=== PATIENT | female | born 1965 | race Caucasian/White ===

== ENCOUNTER 2017-11-24 08:25 | Outpatient (CLI) | payer OTHER ==
[~2017-11-24 08:25] MED LIST: AFRIN15 ML NASAL; ARIMIDEX; AYR SALINE NA14.1 GM NASAL; CARDURA1 MG; CARDURA1 MG PO; COUMADIN3 MG PO; COUMADIN4 MG PO; INTEGRA CAPSUL1 EACH; INTEGRA CAPSUL1 EACH PO; INTESTINEX1 CA1 PO; INTESTINEX680 MG PO; IRON1 TA1; MICARDIS HCT 81 EACH; MICARDIS HCT 81 EACH PO; NEURIN-SL; NORVASC 10 MG TAB PO; NORVASC10 MG; NORVASC10 MG PO; Neurin-Sl Tablet Sl SL; OXYCODON-ACETA1 EACH; PROTONIX40 MG PO; VANCOCIN ORAL SUSP. PO; [UNRECOGNIZED DRUG - OTHER]
== END 2017-11-24 08:40 | disposition home or self-care (01) ==
LOC: LAB 08:25
DX: Z80.3 Family history of malignant neoplasm of breast (principal); Z80.42 Family history of malignant neoplasm of prostate; C50.412 Malignant neoplasm of upper-outer quadrant of left female breast; C50.411 Malignant neoplasm of upper-outer quadrant of right female breast; C18.0 Malignant neoplasm of cecum; C20 Malignant neoplasm of rectum; D50.0 Iron deficiency anemia secondary to blood loss (chronic); I10 Essential (primary) hypertension; D68.9 Coagulation defect, unspecified; D68.62 Lupus anticoagulant syndrome; D68.61 Antiphospholipid syndrome; D68.59 Other primary thrombophilia; D51.1 Vitamin B12 deficiency anemia due to selective vitamin B12 malabsorption with proteinuria; D51.3 Other dietary vitamin B12 deficiency anemia; D63.1 Anemia in chronic kidney disease; N18.3 Chronic kidney disease, stage 3 (moderate); E53.8 Deficiency of other specified B group vitamins; D52.0 Dietary folate deficiency anemia; Z86.73 Personal history of transient ischemic attack (TIA), and cerebral infarction without residual deficits; I63.9 Cerebral infarction, unspecified; I69.352 Hemiplegia and hemiparesis following cerebral infarction affecting left dominant side; E04.2 Nontoxic multinodular goiter; Z86.010 Personal history of colon polyps; R97.0 Elevated carcinoembryonic antigen [CEA]; R97.8 Other abnormal tumor markers

== ENCOUNTER → 2017-12-03 11:40 | Outpatient (CLI) | payer OTHER ==
[~2017-12-03 11:40] MED LIST changes: +ARIMIDEX PO; +GABAPENT PO; +NEPHRONEX-SL T1 EACH PO; +RESTORA CAPSUL1 EACH
== END | disposition home or self-care (01) ==
LOC: LAB 11:40
DX: D68.8 Other specified coagulation defects (principal)

== ENCOUNTER 2017-12-05 06:07 | Day surgery (SDC) | payer OTHER | END 2017-12-05 20:20 | disposition home or self-care (01) | LOC: CIR.AMB 06:07 | DX: C50.411 Malignant neoplasm of upper-outer quadrant of right female breast (principal); C77.3 Secondary and unspecified malignant neoplasm of axilla and upper limb lymph nodes; D24.2 Benign neoplasm of left breast ==

== ENCOUNTER 2017-12-11 15:24 | Inpatient (IN) | payer OTHER ==
[~2017-12-11] VITALS: Ht 175.3 cm; Wt 81.6 kg
[2017-12-11] MEDS ORDERED: MICARDIS80 MG (15:44)
== END 2017-12-14 16:35 | disposition left against medical advice (07) | DRG 866 ==
LOC: ER 15:24 → SEC-K 20:33
PROC: 30233N1 Transfusion of Nonautologous Red Blood Cells into Peripheral Vein, Percutaneous Approach (ICD-10-PCS; principal; 2017-12-13)
DX: A90 Dengue fever [classical dengue] (principal); N17.8 Other acute kidney failure; D62 Acute posthemorrhagic anemia; D68.62 Lupus anticoagulant syndrome; N39.0 Urinary tract infection, site not specified; Z79.01 Long term (current) use of anticoagulants; I12.9 Hypertensive chronic kidney disease with stage 1 through stage 4 chronic kidney disease, or unspecified chronic kidney disease; N18.1 Chronic kidney disease, stage 1; C50.911 Malignant neoplasm of unspecified site of right female breast; E86.0 Dehydration; R23.3 Spontaneous ecchymoses; K29.60 Other gastritis without bleeding; B95.2 Enterococcus as the cause of diseases classified elsewhere

== ENCOUNTER 2018-01-29 08:00 | Inpatient (IN) | payer OTHER ==
[~2018-01-29] VITALS: Ht 175.3 cm; Wt 83.9 kg
[~2018-01-29 08:00] MED LIST changes: +MICARDIS80 MG
[2018-01-29] MEDS ORDERED: AROMASIN25 MG PO (10:23)
[2018-02-19] MEDS ORDERED: MOTRIN IB200 MG PO (07:07)
[2018-02-19] MEDS ORDERED: Mylicon 125MG PO (07:07)
[2018-02-19] MEDS ORDERED: SULFAMETHOXAZO1 EACH PO (07:07)
[2018-02-19] MEDS ORDERED: POLY119PG PO (07:07)
[2018-02-19] MEDS ORDERED: GABAPENTIN600 MG PO (07:07)
== END 2018-02-19 16:12 | disposition home or self-care (01) | DRG 739 ==
LOC: ADM 08:00 → EDSTATUS 08:00 → OB/GYN 02-16 05:10 → O/R 02-16 05:10 → OB/GYN 02-16 14:03
PROVIDERS: Obstetrics & Gynecology
PROC: 0UT70ZZ Resection of Bilateral Fallopian Tubes, Open Approach (ICD-10-PCS; 2018-02-16)
PROC: 0UT20ZZ Resection of Bilateral Ovaries, Open Approach (ICD-10-PCS; 2018-02-16)
PROC: 0DNW0ZZ Release Peritoneum, Open Approach (ICD-10-PCS; 2018-02-16)
PROC: 0UT90ZZ Resection of Uterus, Open Approach (ICD-10-PCS; principal; 2018-02-16 07:00)
DX: C54.1 Malignant neoplasm of endometrium (principal); I63.8 Other cerebral infarction; D68.62 Lupus anticoagulant syndrome; D25.1 Intramural leiomyoma of uterus; D25.2 Subserosal leiomyoma of uterus; N83.201 Unspecified ovarian cyst, right side; N85.01 Benign endometrial hyperplasia; D64.89 Other specified anemias; I12.9 Hypertensive chronic kidney disease with stage 1 through stage 4 chronic kidney disease, or unspecified chronic kidney disease; N18.9 Chronic kidney disease, unspecified; D51.0 Vitamin B12 deficiency anemia due to intrinsic factor deficiency; N93.8 Other specified abnormal uterine and vaginal bleeding; Z79.811 Long term (current) use of aromatase inhibitors; Z85.3 Personal history of malignant neoplasm of breast; Z85.038 Personal history of other malignant neoplasm of large intestine

== ENCOUNTER 2018-02-22 11:58 | Inpatient (IN) | payer OTHER ==
[~2018-02-22] VITALS: Ht 170.2 cm; Wt 81.6 kg
[~2018-02-22 11:58] MED LIST changes: +AROMASIN25 MG PO; +GABAPENTIN600 MG PO; +MOTRIN IB200 MG PO; +Mylicon 125MG PO; +POLY119PG PO; +SULFAMETHOXAZO1 EACH PO
[2018-02-22] MEDS ORDERED: NORVASC2.5 M1 ×2 (12:13)
[2018-02-22] MEDS ORDERED: CARDURA XL4 MG ×2 (12:13)
[2018-02-22] MEDS ORDERED: CARDURA1 MG ×2 (12:13)
[2018-02-28] MEDS ORDERED: CARDURA1 MG PO ×2 (10:47)
[2018-02-28] MEDS ORDERED: INTESTINEX680 M1 PO ×2 (10:48)
[2018-02-28] MEDS ORDERED: VANCOMYCIN HCL1 GM PO ×2 (10:49)
[2018-02-28] MEDS ORDERED: AMLODIPINE BESY10 MG PO ×2 (10:52)
[2018-02-28] MEDS ORDERED: MICARDIS HCT 81 EACH PO ×2 (10:53)
== END 2018-02-28 11:35 | disposition home or self-care (01) | DRG 683 ==
LOC: ER 11:58 → MEDJ 18:10 → MEDI 18:10 → MEDJ 18:26 → SURH 18:53 → MEDJ 19:22
PROC: 4A033R1 Measurement of Arterial Saturation, Peripheral, Percutaneous Approach (ICD-10-PCS; 2018-02-22)
PROC: 8E0ZXY6 Isolation (ICD-10-PCS; 2018-02-22)
PROC: 30233N1 Transfusion of Nonautologous Red Blood Cells into Peripheral Vein, Percutaneous Approach (ICD-10-PCS; principal; 2018-02-25)
PROC: BU4CZZZ Ultrasonography of Uterus and Ovaries (ICD-10-PCS; 2018-02-27)
DX: N17.8 Other acute kidney failure (principal); D68.59 Other primary thrombophilia; K52.1 Toxic gastroenteritis and colitis; D62 Acute posthemorrhagic anemia; N99.840 Postprocedural hematoma of a genitourinary system organ or structure following a genitourinary system procedure; I12.9 Hypertensive chronic kidney disease with stage 1 through stage 4 chronic kidney disease, or unspecified chronic kidney disease; N18.1 Chronic kidney disease, stage 1; E86.0 Dehydration; T36.8X5A Adverse effect of other systemic antibiotics, initial encounter; Y92.098 Other place in other non-institutional residence as the place of occurrence of the external cause; Z90.710 Acquired absence of both cervix and uterus

== ENCOUNTER 2018-03-03 08:53 | Outpatient (CLI) | payer OTHER ==
[~2018-03-03 08:53] MED LIST changes: +AMLODIPINE BESY10 MG PO; +CARDURA XL4 MG; +INTESTINEX680 M1 PO; +NORVASC2.5 M1; +VANCOMYCIN HCL1 GM PO
== END 2018-03-03 09:03 | disposition home or self-care (01) ==
LOC: LAB 08:53
DX: Z80.3 Family history of malignant neoplasm of breast (principal); Z80.42 Family history of malignant neoplasm of prostate; C50.412 Malignant neoplasm of upper-outer quadrant of left female breast; C50.411 Malignant neoplasm of upper-outer quadrant of right female breast; C20 Malignant neoplasm of rectum; D50.0 Iron deficiency anemia secondary to blood loss (chronic); I10 Essential (primary) hypertension; D68.9 Coagulation defect, unspecified; R97.0 Elevated carcinoembryonic antigen [CEA]; R97.8 Other abnormal tumor markers; D68.62 Lupus anticoagulant syndrome; D68.61 Antiphospholipid syndrome; D68.59 Other primary thrombophilia; D51.1 Vitamin B12 deficiency anemia due to selective vitamin B12 malabsorption with proteinuria; D68.8 Other specified coagulation defects; D51.3 Other dietary vitamin B12 deficiency anemia; D63.1 Anemia in chronic kidney disease; N18.3 Chronic kidney disease, stage 3 (moderate); E53.8 Deficiency of other specified B group vitamins; D52.0 Dietary folate deficiency anemia; Z86.73 Personal history of transient ischemic attack (TIA), and cerebral infarction without residual deficits; I63.9 Cerebral infarction, unspecified; I69.352 Hemiplegia and hemiparesis following cerebral infarction affecting left dominant side; E04.2 Nontoxic multinodular goiter; Z86.010 Personal history of colon polyps

== ENCOUNTER 2018-03-17 09:38 | Outpatient (CLI) | payer OTHER | END 2018-03-17 09:44 | disposition home or self-care (01) | LOC: LAB 09:38 | DX: D68.8 Other specified coagulation defects (principal) ==

== ENCOUNTER 2018-04-03 12:52 | Outpatient (CLI) | payer OTHER | END 2018-04-03 14:00 | disposition home or self-care (01) | LOC: NUCLEAR 12:52 | DX: I10 Essential (primary) hypertension (principal); Z80.3 Family history of malignant neoplasm of breast; Z80.42 Family history of malignant neoplasm of prostate; C50.412 Malignant neoplasm of upper-outer quadrant of left female breast; C50.411 Malignant neoplasm of upper-outer quadrant of right female breast; C18.0 Malignant neoplasm of cecum; C20 Malignant neoplasm of rectum; D50.0 Iron deficiency anemia secondary to blood loss (chronic); D68.8 Other specified coagulation defects; D68.62 Lupus anticoagulant syndrome; D68.61 Antiphospholipid syndrome; D68.59 Other primary thrombophilia; D51.1 Vitamin B12 deficiency anemia due to selective vitamin B12 malabsorption with proteinuria; D51.3 Other dietary vitamin B12 deficiency anemia; D63.1 Anemia in chronic kidney disease; N18.3 Chronic kidney disease, stage 3 (moderate); E53.8 Deficiency of other specified B group vitamins; D52.0 Dietary folate deficiency anemia; Z86.73 Personal history of transient ischemic attack (TIA), and cerebral infarction without residual deficits; I63.8 Other cerebral infarction; I69.352 Hemiplegia and hemiparesis following cerebral infarction affecting left dominant side; E04.2 Nontoxic multinodular goiter; Z86.010 Personal history of colon polyps ==

== ENCOUNTER 2018-04-14 09:27 | Outpatient (CLI) | payer OTHER | END 2018-04-14 13:35 | disposition home or self-care (01) | LOC: LAB 09:27 | DX: Z80.3 Family history of malignant neoplasm of breast (principal); Z80.42 Family history of malignant neoplasm of prostate; C50.412 Malignant neoplasm of upper-outer quadrant of left female breast; C50.411 Malignant neoplasm of upper-outer quadrant of right female breast; C18.0 Malignant neoplasm of cecum; C20 Malignant neoplasm of rectum; D50.0 Iron deficiency anemia secondary to blood loss (chronic); I10 Essential (primary) hypertension; D68.9 Coagulation defect, unspecified; D68.62 Lupus anticoagulant syndrome; D68.61 Antiphospholipid syndrome; D68.59 Other primary thrombophilia; D51.1 Vitamin B12 deficiency anemia due to selective vitamin B12 malabsorption with proteinuria; D51.3 Other dietary vitamin B12 deficiency anemia; D63.1 Anemia in chronic kidney disease; N18.3 Chronic kidney disease, stage 3 (moderate); E53.8 Deficiency of other specified B group vitamins; D52.0 Dietary folate deficiency anemia; Z86.73 Personal history of transient ischemic attack (TIA), and cerebral infarction without residual deficits; I63.9 Cerebral infarction, unspecified; I69.352 Hemiplegia and hemiparesis following cerebral infarction affecting left dominant side; E04.2 Nontoxic multinodular goiter; Z86.010 Personal history of colon polyps ==

== ENCOUNTER 2018-05-29 07:23 | Outpatient (CLI) | payer OTHER | END 2018-05-29 07:34 | disposition home or self-care (01) | LOC: LAB 07:23 | DX: Z80.3 Family history of malignant neoplasm of breast (principal); Z80.42 Family history of malignant neoplasm of prostate; C50.412 Malignant neoplasm of upper-outer quadrant of left female breast; C50.411 Malignant neoplasm of upper-outer quadrant of right female breast; C18.0 Malignant neoplasm of cecum; C20 Malignant neoplasm of rectum; D50.0 Iron deficiency anemia secondary to blood loss (chronic); I10 Essential (primary) hypertension; D68.8 Other specified coagulation defects; D68.62 Lupus anticoagulant syndrome; D51.3 Other dietary vitamin B12 deficiency anemia; D63.1 Anemia in chronic kidney disease; N18.3 Chronic kidney disease, stage 3 (moderate); D52.0 Dietary folate deficiency anemia; I63.8 Other cerebral infarction; I69.352 Hemiplegia and hemiparesis following cerebral infarction affecting left dominant side; E04.2 Nontoxic multinodular goiter; Z86.010 Personal history of colon polyps ==

== ENCOUNTER 2018-06-19 09:10 | Outpatient (CLI) | payer OTHER | END 2018-06-19 09:12 | disposition home or self-care (01) | LOC: LAB 09:10 | DX: D68.8 Other specified coagulation defects (principal); Z80.3 Family history of malignant neoplasm of breast; Z80.42 Family history of malignant neoplasm of prostate; C50.412 Malignant neoplasm of upper-outer quadrant of left female breast; C50.411 Malignant neoplasm of upper-outer quadrant of right female breast; C18.0 Malignant neoplasm of cecum; C20 Malignant neoplasm of rectum; D50.0 Iron deficiency anemia secondary to blood loss (chronic); I10 Essential (primary) hypertension; D68.61 Antiphospholipid syndrome; D51.1 Vitamin B12 deficiency anemia due to selective vitamin B12 malabsorption with proteinuria; D51.3 Other dietary vitamin B12 deficiency anemia; N18.3 Chronic kidney disease, stage 3 (moderate); D52.0 Dietary folate deficiency anemia; I63.8 Other cerebral infarction; I69.352 Hemiplegia and hemiparesis following cerebral infarction affecting left dominant side; E04.2 Nontoxic multinodular goiter; Z86.010 Personal history of colon polyps ==

== ENCOUNTER 2018-07-08 09:30 | Outpatient (CLI) | payer OTHER | END 2018-07-08 09:55 | disposition home or self-care (01) | LOC: LAB 09:30 | DX: Z80.3 Family history of malignant neoplasm of breast (principal); Z80.42 Family history of malignant neoplasm of prostate; C50.412 Malignant neoplasm of upper-outer quadrant of left female breast; C50.411 Malignant neoplasm of upper-outer quadrant of right female breast; C18.0 Malignant neoplasm of cecum; C20 Malignant neoplasm of rectum; D50.0 Iron deficiency anemia secondary to blood loss (chronic); I10 Essential (primary) hypertension; D68.9 Coagulation defect, unspecified; D68.62 Lupus anticoagulant syndrome; D68.61 Antiphospholipid syndrome; D68.59 Other primary thrombophilia; D51.1 Vitamin B12 deficiency anemia due to selective vitamin B12 malabsorption with proteinuria; D63.1 Anemia in chronic kidney disease; N18.3 Chronic kidney disease, stage 3 (moderate); E53.8 Deficiency of other specified B group vitamins; D52.0 Dietary folate deficiency anemia; Z86.73 Personal history of transient ischemic attack (TIA), and cerebral infarction without residual deficits; I63.8 Other cerebral infarction; I69.352 Hemiplegia and hemiparesis following cerebral infarction affecting left dominant side; E04.2 Nontoxic multinodular goiter; Z86.010 Personal history of colon polyps ==

== ENCOUNTER 2018-07-21 12:36 | Outpatient (CLI) | payer OTHER | END 2018-07-21 12:44 | disposition home or self-care (01) | LOC: LAB 12:36 | DX: C50.412 Malignant neoplasm of upper-outer quadrant of left female breast (principal); D68.8 Other specified coagulation defects ==

== ENCOUNTER 2018-07-29 11:04 | Outpatient (CLI) | payer OTHER | END 2018-07-29 12:37 | disposition home or self-care (01) | LOC: NUCLEAR 11:04 | DX: I82.622 Acute embolism and thrombosis of deep veins of left upper extremity (principal); Z85.3 Personal history of malignant neoplasm of breast ==

== ENCOUNTER 2018-08-12 15:52 | Outpatient (CLI) | payer OTHER | END 2018-08-12 16:00 | disposition home or self-care (01) | LOC: LAB 15:52 | DX: Z80.3 Family history of malignant neoplasm of breast (principal); Z80.42 Family history of malignant neoplasm of prostate; C50.412 Malignant neoplasm of upper-outer quadrant of left female breast; C50.411 Malignant neoplasm of upper-outer quadrant of right female breast; C18.0 Malignant neoplasm of cecum; C20 Malignant neoplasm of rectum; D50.0 Iron deficiency anemia secondary to blood loss (chronic); I10 Essential (primary) hypertension; D68.8 Other specified coagulation defects; D68.62 Lupus anticoagulant syndrome; D68.61 Antiphospholipid syndrome; D51.1 Vitamin B12 deficiency anemia due to selective vitamin B12 malabsorption with proteinuria; D51.3 Other dietary vitamin B12 deficiency anemia; D63.1 Anemia in chronic kidney disease; N18.3 Chronic kidney disease, stage 3 (moderate); E53.8 Deficiency of other specified B group vitamins; D52.0 Dietary folate deficiency anemia; Z86.73 Personal history of transient ischemic attack (TIA), and cerebral infarction without residual deficits; I63.8 Other cerebral infarction; I69.352 Hemiplegia and hemiparesis following cerebral infarction affecting left dominant side; E04.2 Nontoxic multinodular goiter; Z86.010 Personal history of colon polyps; D50.8 Other iron deficiency anemias; D51.8 Other vitamin B12 deficiency anemias ==

== ENCOUNTER → 2018-08-31 10:41 | Outpatient (CLI) | payer OTHER | END | disposition home or self-care (01) | LOC: LAB 10:41 | DX: D50.8 Other iron deficiency anemias (principal); I10 Essential (primary) hypertension; D68.8 Other specified coagulation defects ==

== ENCOUNTER → 2018-09-11 11:18 | Outpatient (CLI) | payer OTHER | END | disposition home or self-care (01) | LOC: LAB 11:18 | DX: Z80.3 Family history of malignant neoplasm of breast (principal); Z80.42 Family history of malignant neoplasm of prostate; C50.412 Malignant neoplasm of upper-outer quadrant of left female breast; C50.411 Malignant neoplasm of upper-outer quadrant of right female breast; C18.0 Malignant neoplasm of cecum; C20 Malignant neoplasm of rectum; D50.0 Iron deficiency anemia secondary to blood loss (chronic); I10 Essential (primary) hypertension; D68.8 Other specified coagulation defects; D68.61 Antiphospholipid syndrome; D51.3 Other dietary vitamin B12 deficiency anemia; D63.1 Anemia in chronic kidney disease; N18.3 Chronic kidney disease, stage 3 (moderate); D52.0 Dietary folate deficiency anemia; Z86.73 Personal history of transient ischemic attack (TIA), and cerebral infarction without residual deficits; I63.89 Other cerebral infarction; E04.2 Nontoxic multinodular goiter; Z86.010 Personal history of colon polyps ==

== ENCOUNTER → 2018-10-07 10:40 | Outpatient (CLI) | payer OTHER | END | disposition home or self-care (01) | LOC: LAB 10:40 | DX: C50.412 Malignant neoplasm of upper-outer quadrant of left female breast (principal); C50.411 Malignant neoplasm of upper-outer quadrant of right female breast; C18.0 Malignant neoplasm of cecum; C20 Malignant neoplasm of rectum; D50.0 Iron deficiency anemia secondary to blood loss (chronic); I10 Essential (primary) hypertension; D68.8 Other specified coagulation defects; D68.62 Lupus anticoagulant syndrome; D51.1 Vitamin B12 deficiency anemia due to selective vitamin B12 malabsorption with proteinuria; D51.3 Other dietary vitamin B12 deficiency anemia; D63.1 Anemia in chronic kidney disease; N18.3 Chronic kidney disease, stage 3 (moderate); D52.0 Dietary folate deficiency anemia; I63.89 Other cerebral infarction; I69.352 Hemiplegia and hemiparesis following cerebral infarction affecting left dominant side; E04.2 Nontoxic multinodular goiter; Z86.010 Personal history of colon polyps; Z80.42 Family history of malignant neoplasm of prostate; Z80.3 Family history of malignant neoplasm of breast ==

== ENCOUNTER 2018-10-13 17:53 | Outpatient (CLI) | payer OTHER | END 2018-10-13 18:02 | disposition home or self-care (01) | LOC: LAB 17:53 | DX: D50.8 Other iron deficiency anemias (principal) ==

== ENCOUNTER 2018-11-06 07:24 | Outpatient (CLI) | payer OTHER | END 2018-11-06 07:30 | disposition home or self-care (01) | LOC: LAB 07:24 | DX: Z80.3 Family history of malignant neoplasm of breast (principal); Z80.42 Family history of malignant neoplasm of prostate; C50.412 Malignant neoplasm of upper-outer quadrant of left female breast; C50.411 Malignant neoplasm of upper-outer quadrant of right female breast; C18.0 Malignant neoplasm of cecum; C20 Malignant neoplasm of rectum; D50.0 Iron deficiency anemia secondary to blood loss (chronic); I10 Essential (primary) hypertension; D68.9 Coagulation defect, unspecified; D68.62 Lupus anticoagulant syndrome; D68.61 Antiphospholipid syndrome; D68.59 Other primary thrombophilia; D51.1 Vitamin B12 deficiency anemia due to selective vitamin B12 malabsorption with proteinuria; D51.3 Other dietary vitamin B12 deficiency anemia; D63.1 Anemia in chronic kidney disease; N18.3 Chronic kidney disease, stage 3 (moderate); E53.8 Deficiency of other specified B group vitamins; D52.0 Dietary folate deficiency anemia; Z86.73 Personal history of transient ischemic attack (TIA), and cerebral infarction without residual deficits; I63.9 Cerebral infarction, unspecified; I69.352 Hemiplegia and hemiparesis following cerebral infarction affecting left dominant side; E04.2 Nontoxic multinodular goiter; Z86.010 Personal history of colon polyps; D50.8 Other iron deficiency anemias; D51.8 Other vitamin B12 deficiency anemias ==

== ENCOUNTER 2018-11-19 16:18 | Outpatient (CLI) | payer OTHER | END 2018-11-19 16:21 | disposition home or self-care (01) | LOC: LAB 16:18 | DX: Z80.3 Family history of malignant neoplasm of breast (principal); Z80.42 Family history of malignant neoplasm of prostate; C50.412 Malignant neoplasm of upper-outer quadrant of left female breast; C50.411 Malignant neoplasm of upper-outer quadrant of right female breast; C18.0 Malignant neoplasm of cecum; C20 Malignant neoplasm of rectum; D50.0 Iron deficiency anemia secondary to blood loss (chronic); I10 Essential (primary) hypertension; D68.62 Lupus anticoagulant syndrome; D68.61 Antiphospholipid syndrome; D68.59 Other primary thrombophilia; D51.1 Vitamin B12 deficiency anemia due to selective vitamin B12 malabsorption with proteinuria; D51.3 Other dietary vitamin B12 deficiency anemia; D63.1 Anemia in chronic kidney disease; N18.3 Chronic kidney disease, stage 3 (moderate); E53.8 Deficiency of other specified B group vitamins; D52.0 Dietary folate deficiency anemia; Z86.73 Personal history of transient ischemic attack (TIA), and cerebral infarction without residual deficits; I69.352 Hemiplegia and hemiparesis following cerebral infarction affecting left dominant side; E04.2 Nontoxic multinodular goiter; Z86.010 Personal history of colon polyps; D68.8 Other specified coagulation defects; I63.89 Other cerebral infarction ==

== ENCOUNTER 2018-12-07 09:51 | Outpatient (CLI) | payer OTHER | END 2018-12-07 10:01 | disposition home or self-care (01) | LOC: LAB 09:51 | DX: Z80.3 Family history of malignant neoplasm of breast (principal); Z80.42 Family history of malignant neoplasm of prostate; C50.412 Malignant neoplasm of upper-outer quadrant of left female breast; C50.411 Malignant neoplasm of upper-outer quadrant of right female breast; C18.0 Malignant neoplasm of cecum; C20 Malignant neoplasm of rectum; D50.0 Iron deficiency anemia secondary to blood loss (chronic); I10 Essential (primary) hypertension; D68.62 Lupus anticoagulant syndrome; D68.61 Antiphospholipid syndrome; D68.59 Other primary thrombophilia; D51.1 Vitamin B12 deficiency anemia due to selective vitamin B12 malabsorption with proteinuria; D51.3 Other dietary vitamin B12 deficiency anemia; D63.1 Anemia in chronic kidney disease; N18.3 Chronic kidney disease, stage 3 (moderate); E53.8 Deficiency of other specified B group vitamins; D52.0 Dietary folate deficiency anemia; Z86.73 Personal history of transient ischemic attack (TIA), and cerebral infarction without residual deficits; I69.352 Hemiplegia and hemiparesis following cerebral infarction affecting left dominant side; E04.2 Nontoxic multinodular goiter; Z86.010 Personal history of colon polyps; I63.89 Other cerebral infarction; D68.8 Other specified coagulation defects ==

== ENCOUNTER 2018-12-28 09:42 | Outpatient (CLI) | payer OTHER | END 2018-12-28 15:00 | disposition home or self-care (01) | LOC: LAB 09:42 | DX: Z80.3 Family history of malignant neoplasm of breast (principal); Z80.42 Family history of malignant neoplasm of prostate; C50.412 Malignant neoplasm of upper-outer quadrant of left female breast; C50.411 Malignant neoplasm of upper-outer quadrant of right female breast; C18.0 Malignant neoplasm of cecum; C20 Malignant neoplasm of rectum; D50.0 Iron deficiency anemia secondary to blood loss (chronic); I10 Essential (primary) hypertension; D68.8 Other specified coagulation defects; D68.62 Lupus anticoagulant syndrome; D68.61 Antiphospholipid syndrome; D51.1 Vitamin B12 deficiency anemia due to selective vitamin B12 malabsorption with proteinuria; D51.3 Other dietary vitamin B12 deficiency anemia; D63.1 Anemia in chronic kidney disease; N18.3 Chronic kidney disease, stage 3 (moderate); E53.8 Deficiency of other specified B group vitamins; D52.0 Dietary folate deficiency anemia; Z86.73 Personal history of transient ischemic attack (TIA), and cerebral infarction without residual deficits; I63.89 Other cerebral infarction; I69.352 Hemiplegia and hemiparesis following cerebral infarction affecting left dominant side; E04.2 Nontoxic multinodular goiter; Z86.010 Personal history of colon polyps ==

== ENCOUNTER 2019-01-25 09:03 | Outpatient (CLI) | payer OTHER | END 2019-01-25 09:14 | disposition home or self-care (01) | LOC: LAB 09:03 | DX: C50.412 Malignant neoplasm of upper-outer quadrant of left female breast (principal); Z80.3 Family history of malignant neoplasm of breast; Z80.42 Family history of malignant neoplasm of prostate; C50.411 Malignant neoplasm of upper-outer quadrant of right female breast; C18.0 Malignant neoplasm of cecum; C20 Malignant neoplasm of rectum; D50.0 Iron deficiency anemia secondary to blood loss (chronic); I10 Essential (primary) hypertension; D68.8 Other specified coagulation defects; D68.62 Lupus anticoagulant syndrome; D63.1 Anemia in chronic kidney disease; N18.3 Chronic kidney disease, stage 3 (moderate); D52.0 Dietary folate deficiency anemia; I63.89 Other cerebral infarction; I69.352 Hemiplegia and hemiparesis following cerebral infarction affecting left dominant side; E04.2 Nontoxic multinodular goiter; Z86.010 Personal history of colon polyps ==

== ENCOUNTER 2019-02-08 09:16 | Outpatient (CLI) | payer OTHER | END 2019-02-08 09:31 | disposition home or self-care (01) | LOC: LAB 09:16 | DX: D68.8 Other specified coagulation defects (principal); C50.412 Malignant neoplasm of upper-outer quadrant of left female breast; C50.411 Malignant neoplasm of upper-outer quadrant of right female breast; C18.0 Malignant neoplasm of cecum; C20 Malignant neoplasm of rectum; Z80.3 Family history of malignant neoplasm of breast; Z80.42 Family history of malignant neoplasm of prostate; D50.0 Iron deficiency anemia secondary to blood loss (chronic); I10 Essential (primary) hypertension; D68.61 Antiphospholipid syndrome; D51.1 Vitamin B12 deficiency anemia due to selective vitamin B12 malabsorption with proteinuria; D51.3 Other dietary vitamin B12 deficiency anemia; D63.1 Anemia in chronic kidney disease; N18.3 Chronic kidney disease, stage 3 (moderate); D52.0 Dietary folate deficiency anemia; I63.89 Other cerebral infarction; I69.352 Hemiplegia and hemiparesis following cerebral infarction affecting left dominant side; E04.2 Nontoxic multinodular goiter; Z86.010 Personal history of colon polyps; M32.8 Other forms of systemic lupus erythematosus; R97.0 Elevated carcinoembryonic antigen [CEA]; R97.8 Other abnormal tumor markers ==

== ENCOUNTER 2019-03-01 11:59 | Outpatient (CLI) | payer OTHER | END 2019-03-01 12:13 | disposition home or self-care (01) | LOC: LAB 11:59 | DX: C50.412 Malignant neoplasm of upper-outer quadrant of left female breast (principal); C50.411 Malignant neoplasm of upper-outer quadrant of right female breast; Z80.3 Family history of malignant neoplasm of breast; Z80.42 Family history of malignant neoplasm of prostate; C18.0 Malignant neoplasm of cecum; C20 Malignant neoplasm of rectum; D50.0 Iron deficiency anemia secondary to blood loss (chronic); I10 Essential (primary) hypertension; D68.8 Other specified coagulation defects; D68.61 Antiphospholipid syndrome; D63.1 Anemia in chronic kidney disease; D52.0 Dietary folate deficiency anemia; I63.89 Other cerebral infarction; I69.352 Hemiplegia and hemiparesis following cerebral infarction affecting left dominant side; E04.2 Nontoxic multinodular goiter; Z86.010 Personal history of colon polyps ==

== ENCOUNTER 2019-05-08 08:33 | Outpatient (CLI) | payer OTHER | END 2019-05-08 10:45 | disposition home or self-care (01) | LOC: LAB 08:33 | DX: N18.3 Chronic kidney disease, stage 3 (moderate) (principal); Z80.3 Family history of malignant neoplasm of breast; Z80.42 Family history of malignant neoplasm of prostate; R97.0 Elevated carcinoembryonic antigen [CEA]; D50.8 Other iron deficiency anemias; R97.8 Other abnormal tumor markers; D51.1 Vitamin B12 deficiency anemia due to selective vitamin B12 malabsorption with proteinuria; D68.8 Other specified coagulation defects; C50.412 Malignant neoplasm of upper-outer quadrant of left female breast; C50.411 Malignant neoplasm of upper-outer quadrant of right female breast; C18.0 Malignant neoplasm of cecum; C20 Malignant neoplasm of rectum; D50.0 Iron deficiency anemia secondary to blood loss (chronic); I10 Essential (primary) hypertension; D68.61 Antiphospholipid syndrome; D69.59 Other secondary thrombocytopenia; D51.3 Other dietary vitamin B12 deficiency anemia; D63.1 Anemia in chronic kidney disease; E53.8 Deficiency of other specified B group vitamins; D52.0 Dietary folate deficiency anemia; Z86.73 Personal history of transient ischemic attack (TIA), and cerebral infarction without residual deficits; I69.352 Hemiplegia and hemiparesis following cerebral infarction affecting left dominant side; E04.2 Nontoxic multinodular goiter; Z86.010 Personal history of colon polyps; N18.2 Chronic kidney disease, stage 2 (mild); M06.9 Rheumatoid arthritis, unspecified; M32.19 Other organ or system involvement in systemic lupus erythematosus; M35.00 Sjogren syndrome, unspecified; I63.89 Other cerebral infarction ==

== ENCOUNTER → 2019-09-03 12:52 | Outpatient (CLI) | payer OTHER | END | disposition home or self-care (01) | LOC: LAB 12:52 | DX: D50.8 Other iron deficiency anemias (principal); I10 Essential (primary) hypertension; Z80.3 Family history of malignant neoplasm of breast; Z80.42 Family history of malignant neoplasm of prostate; D68.62 Lupus anticoagulant syndrome; C50.412 Malignant neoplasm of upper-outer quadrant of left female breast; C50.411 Malignant neoplasm of upper-outer quadrant of right female breast; I63.89 Other cerebral infarction; C18.0 Malignant neoplasm of cecum; I69.352 Hemiplegia and hemiparesis following cerebral infarction affecting left dominant side; E55.9 Vitamin D deficiency, unspecified; C20 Malignant neoplasm of rectum; E04.2 Nontoxic multinodular goiter; R97.0 Elevated carcinoembryonic antigen [CEA]; D50.0 Iron deficiency anemia secondary to blood loss (chronic); D63.1 Anemia in chronic kidney disease; Z86.010 Personal history of colon polyps; R97.1 Elevated cancer antigen 125 [CA 125]; R97.8 Other abnormal tumor markers; E53.8 Deficiency of other specified B group vitamins; D68.8 Other specified coagulation defects ==

== ENCOUNTER 2020-01-15 09:54 | Outpatient (CLI) | payer OTHER | END 2020-01-15 10:08 | disposition home or self-care (01) | LOC: LAB 09:54 | DX: M32.19 Other organ or system involvement in systemic lupus erythematosus (principal); D68.8 Other specified coagulation defects ==

== ENCOUNTER → 2020-03-28 11:06 | Outpatient (CLI) | payer OTHER | END | disposition home or self-care (01) | LOC: LAB 11:06 | DX: D68.8 Other specified coagulation defects (principal); D50.8 Other iron deficiency anemias; D51.1 Vitamin B12 deficiency anemia due to selective vitamin B12 malabsorption with proteinuria; R97.0 Elevated carcinoembryonic antigen [CEA]; R97.8 Other abnormal tumor markers; C18.8 Malignant neoplasm of overlapping sites of colon; C50.112 Malignant neoplasm of central portion of left female breast; C50.111 Malignant neoplasm of central portion of right female breast ==

== ENCOUNTER → 2020-03-28 | Outpatient (CLI) | payer OTHER | END | disposition home or self-care (01) | LOC: MAMO-SONO 11:55 | DX: Z12.31 Encounter for screening mammogram for malignant neoplasm of breast (principal); Z87.898 Personal history of other specified conditions; C18.8 Malignant neoplasm of overlapping sites of colon; C20 Malignant neoplasm of rectum; C50.911 Malignant neoplasm of unspecified site of right female breast ==

== ENCOUNTER 2021-02-03 09:41 | Outpatient (CLI) | payer OTHER | END 2021-02-03 15:00 | disposition home or self-care (01) | LOC: LAB 09:41 | PROVIDERS: ATTEND Internal Medicine Hematology & Oncology | DX: D50.8 Other iron deficiency anemias (principal); I10 Essential (primary) hypertension; C50.919 Malignant neoplasm of unspecified site of unspecified female breast; R97.8 Other abnormal tumor markers; C56.9 Malignant neoplasm of unspecified ovary; R97.1 Elevated cancer antigen 125 [CA 125]; D68.8 Other specified coagulation defects; Z80.3 Family history of malignant neoplasm of breast; Z80.42 Family history of malignant neoplasm of prostate; C50.412 Malignant neoplasm of upper-outer quadrant of left female breast; C50.411 Malignant neoplasm of upper-outer quadrant of right female breast; C18.0 Malignant neoplasm of cecum; C20 Malignant neoplasm of rectum; D50.0 Iron deficiency anemia secondary to blood loss (chronic); D68.52 Prothrombin gene mutation; D68.59 Other primary thrombophilia; D51.1 Vitamin B12 deficiency anemia due to selective vitamin B12 malabsorption with proteinuria; D51.3 Other dietary vitamin B12 deficiency anemia; D63.1 Anemia in chronic kidney disease; N18.30 Chronic kidney disease, stage 3 unspecified; D52.0 Dietary folate deficiency anemia; Z86.73 Personal history of transient ischemic attack (TIA), and cerebral infarction without residual deficits; D63.8 Anemia in other chronic diseases classified elsewhere; I69.352 Hemiplegia and hemiparesis following cerebral infarction affecting left dominant side; E04.2 Nontoxic multinodular goiter; Z86.010 Personal history of colon polyps ==

== ENCOUNTER 2021-03-03 09:48 | Outpatient (CLI) | payer OTHER | END 2021-03-03 10:02 | disposition home or self-care (01) | LOC: LAB 09:48 | PROVIDERS: ATTEND Internal Medicine Hematology & Oncology | DX: I10 Essential (primary) hypertension (principal); C50.411 Malignant neoplasm of upper-outer quadrant of right female breast; Z80.3 Family history of malignant neoplasm of breast; C54.1 Malignant neoplasm of endometrium; C18.0 Malignant neoplasm of cecum; D50.8 Other iron deficiency anemias; R79.89 Other specified abnormal findings of blood chemistry; R74.02 Elevation of levels of lactic acid dehydrogenase [LDH]; K76.89 Other specified diseases of liver; D68.8 Other specified coagulation defects; C50.819 Malignant neoplasm of overlapping sites of unspecified female breast; R97.8 Other abnormal tumor markers; C56.9 Malignant neoplasm of unspecified ovary; R97.0 Elevated carcinoembryonic antigen [CEA]; C20 Malignant neoplasm of rectum; D50.0 Iron deficiency anemia secondary to blood loss (chronic); D68.62 Lupus anticoagulant syndrome; R97.1 Elevated cancer antigen 125 [CA 125]; D51.1 Vitamin B12 deficiency anemia due to selective vitamin B12 malabsorption with proteinuria; D51.3 Other dietary vitamin B12 deficiency anemia; D63.1 Anemia in chronic kidney disease; N18.30 Chronic kidney disease, stage 3 unspecified; D52.0 Dietary folate deficiency anemia; I63.89 Other cerebral infarction; I69.352 Hemiplegia and hemiparesis following cerebral infarction affecting left dominant side; E04.2 Nontoxic multinodular goiter; Z86.010 Personal history of colon polyps ==

== ENCOUNTER → 2021-04-28 09:03 | Outpatient (CLI) | payer OTHER | END | disposition home or self-care (01) | LOC: LAB 09:03 | PROVIDERS: ATTEND Colon & Rectal Surgery | DX: C18.0 Malignant neoplasm of cecum (principal); C20 Malignant neoplasm of rectum; K92.1 Melena; Z85.038 Personal history of other malignant neoplasm of large intestine; R59.0 Localized enlarged lymph nodes ==

== ENCOUNTER → 2021-05-02 | Day surgery (SDC) | payer OTHER | END | disposition home or self-care (01) | LOC: ADM 04-30 13:45 → AMB-ENDOS 10:51 | PROVIDERS: ATTEND Colon & Rectal Surgery | DX: C20 Malignant neoplasm of rectum (principal); K64.0 First degree hemorrhoids ==

== ENCOUNTER 2021-05-12 08:53 | Outpatient (CLI) | payer OTHER | END 2021-05-12 08:59 | disposition home or self-care (01) | LOC: LAB 08:53 | PROVIDERS: ATTEND Internal Medicine Hematology & Oncology | DX: D68.8 Other specified coagulation defects (principal) ==

== ENCOUNTER → 2021-05-19 08:42 | Outpatient (CLI) | payer OTHER | END | disposition home or self-care (01) | LOC: LAB 08:42 | PROVIDERS: ATTEND Internal Medicine Hematology & Oncology | DX: D50.8 Other iron deficiency anemias (principal); R79.89 Other specified abnormal findings of blood chemistry; I10 Essential (primary) hypertension; R74.02 Elevation of levels of lactic acid dehydrogenase [LDH]; K76.89 Other specified diseases of liver; R97.0 Elevated carcinoembryonic antigen [CEA]; R97.8 Other abnormal tumor markers; Z80.3 Family history of malignant neoplasm of breast; Z80.42 Family history of malignant neoplasm of prostate; C20 Malignant neoplasm of rectum; C78.7 Secondary malignant neoplasm of liver and intrahepatic bile duct; C50.411 Malignant neoplasm of upper-outer quadrant of right female breast; C50.412 Malignant neoplasm of upper-outer quadrant of left female breast; C54.1 Malignant neoplasm of endometrium; C18.0 Malignant neoplasm of cecum; D50.0 Iron deficiency anemia secondary to blood loss (chronic); D68.8 Other specified coagulation defects; D68.61 Antiphospholipid syndrome; D63.1 Anemia in chronic kidney disease; E53.9 Vitamin B deficiency, unspecified; D52.0 Dietary folate deficiency anemia; I63.89 Other cerebral infarction; I69.352 Hemiplegia and hemiparesis following cerebral infarction affecting left dominant side; E04.2 Nontoxic multinodular goiter; Z86.010 Personal history of colon polyps ==

== ENCOUNTER 2021-06-25 09:01 | Outpatient (CLI) | payer OTHER | END 2021-06-25 18:00 | disposition home or self-care (01) | LOC: LAB 09:01 | PROVIDERS: ATTEND Internal Medicine Hematology & Oncology | DX: D50.8 Other iron deficiency anemias (principal); R79.89 Other specified abnormal findings of blood chemistry; I10 Essential (primary) hypertension; R74.02 Elevation of levels of lactic acid dehydrogenase [LDH]; K76.89 Other specified diseases of liver; R97.0 Elevated carcinoembryonic antigen [CEA]; R97.8 Other abnormal tumor markers; D68.8 Other specified coagulation defects; Z80.3 Family history of malignant neoplasm of breast; Z80.42 Family history of malignant neoplasm of prostate; C20 Malignant neoplasm of rectum; C78.7 Secondary malignant neoplasm of liver and intrahepatic bile duct; C50.411 Malignant neoplasm of upper-outer quadrant of right female breast; C50.412 Malignant neoplasm of upper-outer quadrant of left female breast; C54.1 Malignant neoplasm of endometrium; C18.0 Malignant neoplasm of cecum; D68.61 Antiphospholipid syndrome; D63.1 Anemia in chronic kidney disease; D52.0 Dietary folate deficiency anemia; I63.89 Other cerebral infarction; I69.352 Hemiplegia and hemiparesis following cerebral infarction affecting left dominant side; E04.2 Nontoxic multinodular goiter; Z86.010 Personal history of colon polyps ==

== ENCOUNTER → 2021-06-28 09:00 | Outpatient (CLI) | payer OTHER | END | disposition home or self-care (01) | LOC: LAB 09:00 | PROVIDERS: ATTEND Internal Medicine Hematology & Oncology | DX: D68.8 Other specified coagulation defects (principal) ==

== ENCOUNTER 2021-11-08 10:52 | Inpatient (IN) | payer OTHER ==
[~2021-11-08] VITALS: Ht 172.7 cm
[2021-11-12] MEDS ORDERED: INTEGRA F CAPS1 EAC1 (08:27)
[2021-11-12] MEDS ORDERED: WARFARIN SODIUM5 MG (08:27)
[2021-11-12] MEDS ORDERED: OMEPRAZOLE20 MG (08:27)
[2021-11-13] MEDS ORDERED: WARFARIN SODIUM3 MG PO (14:12)
[2021-11-13] MEDS ORDERED: CIPRO500 MG PO (14:12)
== END 2021-11-13 17:27 | disposition home or self-care (01) | DRG 378 ==
LOC: ER 10:52 → ICU-2 11-09 04:17 → SEC-K 11-10 10:43 → SURH 11-10 11:34
PROVIDERS: ADMIT Internal Medicine; ATTEND Internal Medicine
PROC: 30233N1 Transfusion of Nonautologous Red Blood Cells into Peripheral Vein, Percutaneous Approach (ICD-10-PCS; principal; 2021-11-09)
DX: K92.1 Melena (principal); C18.9 Malignant neoplasm of colon, unspecified; D68.62 Lupus anticoagulant syndrome; C78.7 Secondary malignant neoplasm of liver and intrahepatic bile duct; N39.0 Urinary tract infection, site not specified; D64.9 Anemia, unspecified; D51.0 Vitamin B12 deficiency anemia due to intrinsic factor deficiency; I10 Essential (primary) hypertension; B96.29 Other Escherichia coli [E. coli] as the cause of diseases classified elsewhere; Z20.822 Contact with and (suspected) exposure to COVID-19; Z86.73 Personal history of transient ischemic attack (TIA), and cerebral infarction without residual deficits; Z79.01 Long term (current) use of anticoagulants

== ENCOUNTER 2022-04-10 16:28 | Inpatient (IN) | payer OTHER ==
[~2022-04-10] VITALS: Ht 175.3 cm; Wt 54.4 kg
[~2022-04-10 16:28] MED LIST changes: +CIPRO500 MG PO; +INTEGRA F CAPS1 EAC1; +OMEPRAZOLE20 MG; +WARFARIN SODIUM3 MG PO; +WARFARIN SODIUM5 MG
[2022-04-12] MEDS ORDERED: ABANEU-SL TABL1 EACH (13:09)
== END 2022-05-10 14:48 | disposition home or self-care (01) | DRG 374 ==
LOC: ER 16:28 → SEC-K 04-11 08:54 → MEDJ 04-11 17:56
PROVIDERS: ADMIT Internal Medicine; ATTEND Internal Medicine
PROC: 30233N1 Transfusion of Nonautologous Red Blood Cells into Peripheral Vein, Percutaneous Approach (ICD-10-PCS; principal; 2022-04-13)
PROC: 0W9H30Z Drainage of Retroperitoneum with Drainage Device, Percutaneous Approach (ICD-10-PCS; 2022-04-17)
PROC: BW21YZZ Computerized Tomography (CT Scan) of Abdomen and Pelvis using Other Contrast (ICD-10-PCS; 2022-04-22)
PROC: B54CZZZ Ultrasonography of Left Lower Extremity Veins (ICD-10-PCS; 2022-04-24)
PROC: BW21YZZ Computerized Tomography (CT Scan) of Abdomen and Pelvis using Other Contrast (ICD-10-PCS; 2022-04-29)
PROC: BW21YZZ Computerized Tomography (CT Scan) of Abdomen and Pelvis using Other Contrast (ICD-10-PCS; 2022-05-07)
PROC: BR3CYZZ Magnetic Resonance Imaging (MRI) of Pelvis using Other Contrast (ICD-10-PCS; 2022-05-09)
DX: C18.9 Malignant neoplasm of colon, unspecified (principal); K68.19 Other retroperitoneal abscess; L02.214 Cutaneous abscess of groin; D68.62 Lupus anticoagulant syndrome; C78.7 Secondary malignant neoplasm of liver and intrahepatic bile duct; C78.6 Secondary malignant neoplasm of retroperitoneum and peritoneum; D64.9 Anemia, unspecified; D63.0 Anemia in neoplastic disease; D63.1 Anemia in chronic kidney disease; R33.8 Other retention of urine; N32.0 Bladder-neck obstruction; D69.6 Thrombocytopenia, unspecified; B96.1 Klebsiella pneumoniae [K. pneumoniae] as the cause of diseases classified elsewhere; B96.89 Other specified bacterial agents as the cause of diseases classified elsewhere; N18.9 Chronic kidney disease, unspecified; C50.911 Malignant neoplasm of unspecified site of right female breast; C50.912 Malignant neoplasm of unspecified site of left female breast; D51.0 Vitamin B12 deficiency anemia due to intrinsic factor deficiency; I12.9 Hypertensive chronic kidney disease with stage 1 through stage 4 chronic kidney disease, or unspecified chronic kidney disease
CPT/HCPCS: 72198

== ENCOUNTER 2022-05-28 13:51 | Inpatient (IN) | payer OTHER ==
[~2022-05-28] VITALS: Ht 152.4 cm; Wt 54.4 kg
[~2022-05-28 13:51] MED LIST changes: +ABANEU-SL TABL1 EACH
[2022-05-28] MEDS ORDERED: PERCOCET 5-3251 EACH PO (14:49)
[2022-05-28] MEDS ORDERED: NEURIN SL (14:51)
--- NOTE | 2022-05-28 14:52 | NUR ---
SE RECIBE PTE. ALERTA Y ORIENTADO X3. PACIENTE CON DX. DE CANCER COLORECTAL ATENDIENDOSE CON DR. SOLIS Y DR. FELIX. PACIENTE REFIERE TENER DOLOR EN ESCALA 9. SE DRISS SIGNOS VITALES. PACIENTE REFIERE SANGRADO RECTAL. SE ACOMADA PTE. EN DONAVAN K9.
--- NOTE | 2022-05-28 16:38 | NUR ---
RN MUNOZ ORIENTA A PTE SOBRE TRATAMIENTO A SEGUIR, SUNDAR REFIERE ENTENDER. LE COLECTA MUESTRAS, SE CANALIZA Y SE ADMINITRA MEDICAMENTO ROMEO ORDEN MEDICA UTILIZANDO MEDIDAS ASEPTICAS. SE LLAMA A PERSONAL DE [facility] [facility] Y SE HABLA CON MRS.SILVA PARA REQUISAR 3 UNIDADES DE PRBC FRACCIONADAS, SUNDAR MISMA REFIERE QUE PTE YA TIENE RECORD PREVIO. SE ENVIA TUBOS PILOTOS A LABORATORIO.
[2022-05-29] MEDS ORDERED: JANTOVEN2.5 MG (11:15)
[2022-05-29] MEDS ORDERED: SYNTHROID50 MCG (11:15)
[2022-05-29] MEDS ORDERED: AMLODIPINE BESY10 MG (11:16)
[2022-05-29] MEDS ORDERED: DOXAZOSIN MESYLA2 MG (11:16)
== END 2022-06-14 16:15 | disposition home or self-care (01) | DRG 811 ==
LOC: ER 13:51 → SEC-K 16:55 → MEDJ 16:55 → MEDI 05-29 15:17 → MEDJ 05-29 16:38
PROVIDERS: ADMIT Internal Medicine; ATTEND Internal Medicine
PROC: 30233R1 Transfusion of Nonautologous Platelets into Peripheral Vein, Percutaneous Approach (ICD-10-PCS; principal; 2022-06-01)
PROC: B020YZZ Computerized Tomography (CT Scan) of Brain using Other Contrast (ICD-10-PCS; 2022-06-01)
PROC: B030ZZZ Magnetic Resonance Imaging (MRI) of Brain (ICD-10-PCS; 2022-06-02)
PROC: 4A12X4Z Monitoring of Cardiac Electrical Activity, External Approach (ICD-10-PCS; 2022-06-03)
PROC: 3E0336Z Introduction of Nutritional Substance into Peripheral Vein, Percutaneous Approach (ICD-10-PCS; 2022-06-04)
PROC: 3E0G76Z Introduction of Nutritional Substance into Upper GI, Via Natural or Artificial Opening (ICD-10-PCS; 2022-06-05)
PROC: 0DH67UZ Insertion of Feeding Device into Stomach, Via Natural or Artificial Opening (ICD-10-PCS; 2022-06-05)
PROC: 30233N1 Transfusion of Nonautologous Red Blood Cells into Peripheral Vein, Percutaneous Approach (ICD-10-PCS; 2022-06-08)
DX: D50.0 Iron deficiency anemia secondary to blood loss (chronic) (principal); I63.81 Other cerebral infarction due to occlusion or stenosis of small artery; C78.5 Secondary malignant neoplasm of large intestine and rectum; C78.6 Secondary malignant neoplasm of retroperitoneum and peritoneum; C78.7 Secondary malignant neoplasm of liver and intrahepatic bile duct; D68.62 Lupus anticoagulant syndrome; K92.2 Gastrointestinal hemorrhage, unspecified; D63.0 Anemia in neoplastic disease; D63.1 Anemia in chronic kidney disease; D69.6 Thrombocytopenia, unspecified; C50.911 Malignant neoplasm of unspecified site of right female breast; C50.912 Malignant neoplasm of unspecified site of left female breast; I12.9 Hypertensive chronic kidney disease with stage 1 through stage 4 chronic kidney disease, or unspecified chronic kidney disease; N18.9 Chronic kidney disease, unspecified; F41.9 Anxiety disorder, unspecified; Z79.01 Long term (current) use of anticoagulants
CPT/HCPCS: 70544